=== PATIENT | male | born 1965 | race Caucasian/White ===

== ENCOUNTER 2019-06-11 01:48 | Inpatient (IN) | payer SELFPAY ==
--- NOTE | 2019-06-11 02:02 | HP ---
"CIWA Score Nausea/Vomitin-No Nausea/No Vomiting Muscle Tremors: 1-None Visible, but [place] Anxiety: 3 Agitation: 3 Paroxysmal Sweats: 3 Orientation: 0-Oriented Tacttile Disturbances: 0-None Auditory Disturbances: 0-None Visual Disturbances: 0-None Headache: 0-None Present CIWA-Ar Total Score: 10 - Admission Criteria OASAS Guidelines: Admission for Medically Managed Detox: Requires at least one of the followin. CIWA greater than 12 2. Seizures within the past 24 hours 3. Delirium tremens within the past 24 hours 4. Hallucinations within the past 24 hours 5. Acute intervention needed for co occurring medical disorder 6. Acute intervention needed for co occurring psychiatric disorder 7. Severe withdrawal that cannot be handled at a lower level of care (continued vomiting, continued diarrhea, abnormal vital signs) requiring intravenous medication and/or fluids 8. Patient presents the following: Acute intervention needed for co-occurring med or psych disorder (CHUY: 0.237) Admission Criteria Met: Admission criteria met Admission ROS BHS - HPI Chief Complaint: I need help. Allergies/Adverse Reactions: Allergies Allergy/AdvReac Type Severity Reaction Status Date / Time No Known Allergies Allergy Verified 06/11/19 02:14 History of Present Illness: 53 yo w/ hx alcohol use presents intoxicated w/ withdrawal symptoms requesting detox. Alcohol use began at an early age. States drinks 2 - 5 Th's vodka daily. Last drink earlier. Drinks daily.Currently drinking 8 years. Denies nicotine. No other drugs. PMHx: 4-5x/ urination; Encouraged to f/u upon discharge. MHHx: Insomnia. Denies depression. States living in an inferno and doesn't want to keep living that way. Denies thoughts of harming sself or others. SHx: Domiciled. Employed. Denies legal problems. Search Terms: Kate Nath, 1965 Search Date: 06/11/2019 02:10:13 AM The Drug Utilization Report below displays all of the controlled substance prescriptions, if any, that your patient has filled in the last twelve months. The information displayed on this report is compiled from pharmacy submissions to the Department, and accurately reflects the information as submitted by the pharmacies. This report was requested by: Yolis Del Rio | Reference #: [id number] There are no results for the search terms that you entered. Exam Limitations: Intoxication - Ebola screening Have you traveled outside of the country in the last 21 days: No Have you had contact with anyone from an Ebola affected area: No Have you been sick,other than usual withdrawal symptoms: No Do you have a fever: No - Review of Systems Constitutional: Diaphoresis EENT: reports: Blurred Vision Respiratory: reports: No Symptoms reported Cardiac: reports: No Symptoms Reported GI: reports: No Symptoms Reported : reports: Frequency (4-5 x / night urination) Musculoskeletal: reports: No Symptoms Reported Integumentary: reports: No Symptoms Reported Neuro: reports: No Symptoms reported Endocrine: reports: No Symptoms Reported Hematology: reports: No Symptoms Reported Psychiatric: reports: Orientated x3, Agitated Patient History - PPD History Previous Implant?: No (Will order TB Gold test) Implanted On Prior [facility] Admission?: No PPD to be Administered?: No - Smoking Cessation Smoking history: Never smoked Have you smoked in the past 12 months: No Hx Chewing Tobacco Use: No Initiated information on smoking cessation: No - Substance & Tx. History Hx Alcohol Use: Yes Hx Substance Use: No Substance Use Type: Alcohol Hx Substance Use Treatment: No - Substances abused Alcohol Substance route: Oral Frequency: Daily Admission Physical Exam BHS - Physical General Appearance: Yes: Nourished, Intoxicated (CHUY 0.237), Tremorous (faint tremors in hands), Anxious HEENTM: Yes: EOMI (Slight nystagmus on lateral gaze), Hearing grossly Normal, Normocephalic, Normal Voice, SHASTA, Pharynx Normal Respiratory: Yes: Lungs Clear, Normal Breath Sounds, No Respiratory Distress Neck: Yes: No masses,lesions,Nodules, Supple Breast: Yes: Breast Exam Deferred Cardiology: Yes: Regular Rhythm, S1, S2, Tachycardia (HR: 118) Abdominal: Yes: Non Tender, Soft, Increased Bowel Sounds, Protuberent ( Increased abdominal adiposity) Genitourinary: Yes: Frequency Back: Yes: Normal Inspection Musculoskeletal: Yes: full range of Motion, Gait Steady Extremities: Yes: Normal Capillary Refill, Tremors (faint tremors in hands) 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: 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: 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 NML intact (Nystagmus on lateral gaze) Integumentary: Yes: Normal Color, Warm Lymphatic: Yes: Within Normal Limits - Diagnostic (1) Alcohol dependence with uncomplicated intoxication Current Visit: Yes Status: Acute (2) Nystagmus Current Visit: Yes Status: Acute (3) Tachycardia Current Visit: Yes Status: Acute (4) Nocturia Current Visit: Yes Status: Chronic Comment: 4-5x/night Cleared for Admission S - Detox or Rehab [facility] Level of Care: Medically Managed Detox Regimen/Protocol: Librium Claeared for Rehab Admission: No Breathalyzer - Breathalyzer Breathalyzer: 0.237 Urine Drug Screen - Test Device Lot number: [id number] Expiration date: 03/06/21 - Control Is test valid?: Yes - Results Drug screen NEGATIVE: Yes Inpatient Rehab Admission - Rehab Decision to Admit Inpatient rehab admission?: No"
[2019-06-11] MEDS ORDERED: MENTHOL/PHENOL 1 EACH UD MM PRN (02:37)
[2019-06-11] MEDS ORDERED: chlordiazePOXIDE HCL 25 MG CAPSULE PO PRN (02:37)
[2019-06-11] MEDS ORDERED: ACETAMINOPHEN 325 MG TABLET (FP) PO PRN ×2 (02:37)
[2019-06-11] MEDS ORDERED: IBUPROFEN 400 MG TABLET (FP) PO PRN (02:37)
[2019-06-11] MEDS ORDERED: BISMUTH SUBSALICYLATE 524 MG/30 ML UD PO PRN (02:37)
[2019-06-11] MEDS ORDERED: MAG HYDROX/AL HYDROX/SIMETH 30 ML UNIT-DOSE CUP PO PRN (02:37)
[2019-06-11] MEDS ORDERED: MAGNESIUM CITRATE 300 ML BOTTLE PO PRN (02:37)
[2019-06-11] MEDS ORDERED: METHOCARBAMOL 500 MG TABLET PO PRN (02:37)
[2019-06-11] MEDS ORDERED: MAGNESIUM HYDROX 2400MG/30ML ORAL SUSPENSION 30 ML CUP PO PRN (02:37)
[2019-06-11] MEDS ORDERED: cloNIDine HCL 0.1 MG TABLET PO ONE (03:45)
[2019-06-11] MEDS: chlordiazePOXIDE HCL 25 MG CAPSULE PO SCH ×6 (06:05→22:12)
--- NOTE | 2019-06-11 09:46 | PN ---
S CIWA - CIWA Score Nausea/Vomitin Muscle Tremors: 2 Anxiety: 2 Agitation: 2 Paroxysmal Sweats: No Perspiration Orientation: 0-Oriented Tacttile Disturbances: 1-Very Mild Itch/Numbness Auditory Disturbances: 0-None Visual Disturbances: 0-None Headache: 2-Mild CIWA-Ar Total Score: 11 BHS Progress Note (SOAP) Subjective: alert,irritable,anxious interrupted sleep,tremor Objective: 06/11/19 09:44 Vital Signs Temperature 98.1 F 06/11/19 09:14 Pulse Rate 108 H 06/11/19 09:14 Respiratory Rate 06/11/19 09:14 Blood Pressure 98/54 L 06/11/19 09:14 O2 Sat by Pulse Oximetry (%) 06/11/19 09:45 labs pending Assessment: 06/11/19 09:45 withdrawal symptom Plan: continue detox,librium regimen
[2019-06-11] MEDS ORDERED: chlordiazePOXIDE HCL 10 MG CAPSULE PO PRN (09:47)
--- NOTE | 2019-06-11 11:18 | CONSULT ---
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 Refer to addiction counselor's summary for furher information Medical History: Unremarkable. Psychiatric History: Denies history of previous psychiatric treatment Physical/Sexual Abuse/Trauma History: Denies history emotional, physical or sexual abuse as well as DV relationship. No service Additional Comment: Reports history of one previous arrest on charges of driving without a license Mental Status Exam - Mental Status Exam Alert and Oriented to: Time, Place, Person Cognitive Function: Fair Patient Appearance: Disheveled Mood: Depressed Affect: Appropriate Patient Behavior: Cooperative Speech Pattern: Clear Voice Loudness: Normal Thought Process: Intact, Goal Oriented Hallucinations: Denies Suicidal Ideation: Denies Homicidal Ideation: Denies Insight/Judgement: Poor Appetite: Good Muscle strength/Tone: Normal Gait/Station: Normal Psychiatric Findings - Problem List ([place] 1, 2,3) (1) Alcohol-induced mood disorder Current Visit: Yes Status: Acute (2) Alcohol-induced sleep disorder Current Visit: Yes Status: Acute (3) Alcohol dependence with uncomplicated intoxication Current Visit: Yes Status: Acute - Initial Treatment Plan Initial Treatment Plan: 1) Start Belsomra 10 mg po HS prn for insomnia. 2) Continue inpatient detoxification
[2019-06-11] MEDS: PRENATAL VITAMINS W/ FOLIC ACID TABLET (FP) PO SCH (11:32)
[2019-06-11 12:14] LABS: HEMATOCRIT 43.1 % (35.4-49); HEMOGLOBIN 14.9 GM/dL (11.7-16.9); MCH 31.7 pg (25.7-33.7); MCHC 34.6 g/dl (32.0-35.9); MEAN CELL VOLUME 91.5 fl (80-96); MEAN PLT VOLUME 10.1 fl (7.5-11.1); PLATELET COUNT 76 K/MM3 (134-434); RBC 4.72 M/mm3 (4.00-5.60); WHITE BLOOD COUNT 2.9 K/mm3 (4.0-10.0)
[2019-06-11 12:31] LABS: ALBUMIN 3.5 g/dl (3.4-5.0); BILIRUBIN,TOTAL 0.6 mg/dL (0.2-1); BLOOD UREA NITROGEN 13.4 mg/dL (7-18); CALCIUM 8.3 mg/dL (8.5-10.1); CREATININE 1.1 mg/dL (0.55-1.3); POTASSIUM 3.5 mmol/L (3.5-5.1); TOT PROT 6.7 g/dl (6.4-8.2)
[2019-06-11] MEDS: SUVOREXANT 10 MG TABLET PO PRN (22:14)
[2019-06-11] MEDS: THIAMINE HCL 100 MG TABLET (FP) PO SCH (22:20)
[2019-06-11] MEDS ORDERED: MELATONIN 5 MG TABLETS PO PRN (23:00)
[2019-06-12] MEDS: chlordiazePOXIDE HCL 25 MG CAPSULE PO SCH ×4 (07:08→22:09)
--- NOTE | 2019-06-12 10:03 | PN ---
S CIWA - CIWA Score Nausea/Vomitin Muscle Tremors: 2 Anxiety: 2 Agitation: 2 Paroxysmal Sweats: 1-Minimal [place] Moist Orientation: 0-Oriented Tacttile Disturbances: 1-Very Mild Itch/Numbness Auditory Disturbances: 0-None Visual Disturbances: 0-None Headache: 1-Very Mild CIWA-Ar Total Score: 11 S Progress Note (SOAP) Subjective: alert,irritable,anxious,interrupted sleep,pain in the body Objective: 06/12/19 10:01 Vital Signs Temperature 98.3 F 06/12/19 09:18 Pulse Rate 115 H 06/12/19 09:18 Respiratory Rate 18 06/12/19 09:18 Blood Pressure 130/93 06/12/19 09:18 O2 Sat by Pulse Oximetry (%) Laboratory Last Values WBC 2.9 K/mm3 (4.0-10.0) L 06/11/19 09:00 RBC 4.72 M/mm3 (4.00-5.60) 06/11/19 09:00 Hgb 14.9 GM/dL (11.7-16.9) 06/11/19 09:00 Hct 43.1 % (35.4-49) 06/11/19 09:00 MCV 91.5 fl (80-96) 06/11/19 09:00 MCH 31.7 pg (25.7-33.7) 06/11/19 09:00 MCHC 34.6 g/dl (32.0-35.9) 06/11/19 09:00 RDW 14.0 % (11.9-15.9) 06/11/19 09:00 Plt Count 76 K/MM3 (134-434) L 06/11/19 09:00 MPV 10.1 fl (7.5-11.1) 06/11/19 09:00 Sodium 143 mmol/L (136-145) 06/11/19 09:00 Potassium 3.5 mmol/L (3.5-5.1) 06/11/19 09:00 Chloride 101 mmol/L (98-107) 06/11/19 09:00 Carbon Dioxide 26 mmol/L (21-32) 06/11/19 09:00 Anion Gap 16 MMOL/L (8-16) 06/11/19 09:00 BUN 13.4 mg/dL (7-18) 06/11/19 09:00 Creatinine 1.1 mg/dL (0.55-1.3) 06/11/19 09:00 Est GFR (CKD-EPI)AfAm 89.61 06/11/19 09:00 Est GFR (CKD-EPI)NonAf 77.32 06/11/19 09:00 Random Glucose 164 mg/dL (74-106) H 06/11/19 09:00 Calcium 8.3 mg/dL (8.5-10.1) L 06/11/19 09:00 Total Bilirubin 0.6 mg/dL (0.2-1) 06/11/19 09:00 AST 57 U/L (15-37) H 06/11/19 09:00 ALT 59 U/L (13-61) 06/11/19 09:00 Alkaline Phosphatase 77 U/L (45-117) 06/11/19 09:00 Total Protein 6.7 g/dl (6.4-8.2) 06/11/19 09:00 Albumin 3.5 g/dl (3.4-5.0) 06/11/19 09:00 Assessment: 06/12/19 10:03 withdrawal symptom Plan: continue detox librium regimen
[2019-06-12] MEDS: PRENATAL VITAMINS W/ FOLIC ACID TABLET (FP) PO SCH (10:21)
[2019-06-12] MEDS: SUVOREXANT 10 MG TABLET PO PRN (22:09)
[2019-06-12] MEDS: THIAMINE HCL 100 MG TABLET (FP) PO SCH (22:09)
[2019-06-13] MEDS ORDERED: chlordiazePOXIDE HCL 10 MG CAPSULE PO PRN
[2019-06-13] MEDS ORDERED: chlordiazePOXIDE 5 MG CAPSULE PO SCH (05:00)
[2019-06-13] MEDS: chlordiazePOXIDE HCL 10 MG CAPSULE PO SCH ×4 (06:07→22:20)
--- NOTE | 2019-06-13 10:37 | PN ---
S CIWA - CIWA Score Nausea/Vomitin-No Nausea/No Vomiting Muscle Tremors: 2 Anxiety: 3 Agitation: 0-Normal Activity Paroxysmal Sweats: 3 Orientation: 0-Oriented Tacttile Disturbances: 0-None Auditory Disturbances: 0-None Visual Disturbances: 0-None Headache: 2-Mild CIWA-Ar Total Score: 10 S Progress Note (SOAP) Subjective: c/o sweats, anxiety, headache, and mild shakes. Objective: 06/13/19 10:36 Vital Signs 06/13/19 06/13/19 06:00 08:59 Temperature 98.4 F 98.4 F Pulse Rate 89 119 H Respiratory 18 18 Rate Blood Pressure 134/82 143/98 Lab Results WBC 2.9 K/mm3 (4.0-10.0) L 06/11/19 09:00 RBC 4.72 M/mm3 (4.00-5.60) 06/11/19 09:00 Hgb 14.9 GM/dL (11.7-16.9) 06/11/19 09:00 Hct 43.1 % (35.4-49) 06/11/19 09:00 MCV 91.5 fl (80-96) 06/11/19 09:00 MCHC 34.6 g/dl (32.0-35.9) 06/11/19 09:00 RDW 14.0 % (11.9-15.9) 06/11/19 09:00 Plt Count 76 K/MM3 (134-434) L 06/11/19 09:00 Sodium 143 mmol/L (136-145) 06/11/19 09:00 Potassium 3.5 mmol/L (3.5-5.1) 06/11/19 09:00 Chloride 101 mmol/L (98-107) 06/11/19 09:00 Carbon Dioxide 26 mmol/L (21-32) 06/11/19 09:00 Anion Gap 16 MMOL/L (8-16) 06/11/19 09:00 BUN 13.4 mg/dL (7-18) 06/11/19 09:00 Creatinine 1.1 mg/dL (0.55-1.3) 06/11/19 09:00 Random Glucose 164 mg/dL (74-106) H 06/11/19 09:00 Calcium 8.3 mg/dL (8.5-10.1) L 06/11/19 09:00 Labs reviewed. Assessment: 06/13/19 10:36 AOX3, in no acute distress. Full ROM, ambulating in the unit. Withdrawal symptoms. Plan: continue detox
[2019-06-13] MEDS: PRENATAL VITAMINS W/ FOLIC ACID TABLET (FP) PO SCH (10:52)
[2019-06-13] MEDS: SUVOREXANT 10 MG TABLET PO PRN (22:20)
[2019-06-13] MEDS: THIAMINE HCL 100 MG TABLET (FP) PO SCH (22:20)
[2019-06-14] MEDS ORDERED: chlordiazePOXIDE HCL 10 MG CAPSULE PO PRN
[2019-06-14] MEDS ORDERED: chlordiazePOXIDE HCL 10 MG CAPSULE PO SCH (05:00)
[2019-06-14] MEDS: chlordiazePOXIDE HCL 10 MG CAPSULE PO SCH ×2 (06:04→17:34)
[2019-06-14] MEDS: PRENATAL VITAMINS W/ FOLIC ACID TABLET (FP) PO SCH (10:57)
[2019-06-14] MEDS ORDERED: cloNIDine HCL 0.1 MG TABLET PO PRN (13:32)
--- NOTE | 2019-06-14 13:35 | PN ---
[facility] CIWA - CIWA Score Nausea/Vomitin-No Nausea/No Vomiting Muscle Tremors: None Anxiety: 3 Agitation: 2 Paroxysmal Sweats: 2 Orientation: 0-Oriented Tacttile Disturbances: 0-None Auditory Disturbances: 0-None Visual Disturbances: 0-None Headache: 0-None Present CIWA-Ar Total Score: 7 BHS Progress Note (SOAP) Subjective: Interrupted sleep Objective: 06/14/19 13:30 Last Vital Signs Temp Pulse Resp BP Pulse Ox 98.4 F 98 H 18 151/98 06/14/19 13:01 06/14/19 13:01 06/14/19 13:01 06/14/19 13:01 Elevated b/p noted (denies htn, not on med) Laboratory Tests 06/11/19 06/11/19 06/11/19 09:00 09:00 09:00 WBC 2.9 L RBC 4.72 Hgb 14.9 Hct 43.1 MCV 91.5 MCH 31.7 MCHC 34.6 RDW 14.0 Plt Count 76 L MPV 10.1 Sodium 143 Potassium 3.5 Chloride 101 Carbon Dioxide 26 Anion Gap 16 BUN 13.4 Creatinine 1.1 Est GFR (CKD-EPI)AfAm 89.61 Est GFR (CKD-EPI)NonAf 77.32 Random Glucose 164 H Calcium 8.3 L Total Bilirubin 0.6 AST 57 H ALT 59 Alkaline Phosphatase 77 Total Protein 6.7 Albumin 3.5 TB (QFT) Incubation TB Test (QFT) Nil 0.04 TB Test (QFT) Mitogen >10.00 TB Test (QFT) Antigen 0.04 TB Test (QFT) Negative TB Positive Criteria Labs reviewed: serum glucose 164 Assessment: 06/14/19 13:35 Withdrawal sxs Noted with elevated b/p and hyperglycemia Plan: Continue detox Encouraged PO water hydration Patient for discharge tomorrow. Hold discharge until lab result (fasting glucose , A1c) available Elevated b/p: denies htn, start clonidine prn if b/p > 140/90, follow up with PCP for management Hyperglycemia: denies dm, could be r/t withdrawal, check fingerstick x 1, repeat fasting glucose, send HbA1c
[2019-06-14] MEDS: THIAMINE HCL 100 MG TABLET (FP) PO SCH (22:03)
[2019-06-14] MEDS: SUVOREXANT 10 MG TABLET PO PRN (22:05)
[2019-06-15] MEDS ORDERED: chlordiazePOXIDE HCL 10 MG CAPSULE PO ONE ×2 (05:00)
--- NOTE | 2019-06-15 08:36 | DS ---
[facility] Detox Discharge Summary Admission Date: 06/11/19 Discharge Date: 06/15/19 - History Present History: Alcohol Dependence - Physical Exam Results Vital Signs: Vital Signs Temperature 97.7 F 06/15/19 06:45 Pulse Rate 119 H 06/15/19 06:45 Respiratory Rate 20 06/15/19 06:45 Blood Pressure 138/98 06/15/19 06:45 O2 Sat by Pulse Oximetry (%) Pertinent Admission Physical Exam Findings: pt arrived in withdrawals Laboratory Tests 06/11/19 06/11/19 06/11/19 09:00 09:00 09:00 WBC 2.9 L RBC 4.72 Hgb 14.9 Hct 43.1 MCV 91.5 MCH 31.7 MCHC 34.6 RDW 14.0 Plt Count 76 L MPV 10.1 Sodium 143 Potassium 3.5 Chloride 101 Carbon Dioxide 26 Anion Gap 16 BUN 13.4 Creatinine 1.1 Est GFR (CKD-EPI)AfAm 89.61 Est GFR (CKD-EPI)NonAf 77.32 POC Glucometer Random Glucose 164 H Calcium 8.3 L Total Bilirubin 0.6 AST 57 H ALT 59 Alkaline Phosphatase 77 Total Protein 6.7 Albumin 3.5 TB (QFT) Incubation TB Test (QFT) Nil 0.04 TB Test (QFT) Mitogen >10.00 TB Test (QFT) Antigen 0.04 TB Test (QFT) Negative TB Positive Criteria 06/14/19 17:26 WBC RBC Hgb Hct MCV MCH MCHC RDW Plt Count MPV Sodium Potassium Chloride Carbon Dioxide Anion Gap BUN Creatinine Est GFR (CKD-EPI)AfAm Est GFR (CKD-EPI)NonAf POC Glucometer 144 Random Glucose Calcium Total Bilirubin AST ALT Alkaline Phosphatase Total Protein Albumin TB (QFT) Incubation TB Test (QFT) Nil TB Test (QFT) Mitogen TB Test (QFT) Antigen TB Test (QFT) TB Positive Criteria today pt is aaox3 ambulating no s/s of withdrawals - Treatment Hospital Course: Detox Protocol Followed, Detoxed Safely, Responded well, Discharged Condition Good, Rehab Referral Accepted Patient has Accepted a Rehab Referral to: pt declined rehab; referral provided - Diagnosis (1) Alcohol dependence with uncomplicated intoxication Current Visit: Yes Status: Chronic (2) Alcohol-induced mood disorder Current Visit: Yes Status: Acute (3) Alcohol-induced sleep disorder Current Visit: Yes Status: Acute (4) Tachycardia Current Visit: Yes Status: Chronic - AMA Did Patient Leave Against Medical Advice: No
[2019-06-15 09:22] VITALS: BP 133/97; PULSE 110; TEMP 98.2
== END 2019-06-15 10:10 | disposition home or self-care (01) | DRG 775 ==
LOC: YASAS 01:48 → Y6N 02:26 → UNDODISIN 03:00 → Y6N 03:03
PROVIDERS: ADMIT Surgery; ATTEND Surgery
PROC: HZ2ZZZZ Detoxification Services for Substance Abuse Treatment (ICD-10-PCS; principal; 2019-06-11)
DX: F10.230 Alcohol dependence with withdrawal, uncomplicated (principal); F10.24 Alcohol dependence with alcohol-induced mood disorder; F10.282 Alcohol dependence with alcohol-induced sleep disorder; R35.1 Nocturia; R03.0 Elevated blood-pressure reading, without diagnosis of hypertension; R00.0 Tachycardia, unspecified; R73.9 Hyperglycemia, unspecified; H55.00 Unspecified nystagmus
CPT/HCPCS: 36415; 80053; 82947; 82962; 83036; 85027; 86480; J0735

== ENCOUNTER 2019-08-14 11:12 | Inpatient (IN) | payer SELFPAY ==
[2019-08-14 12:20] VITALS: BMI 32.1
--- NOTE | 2019-08-14 15:57 | HP ---
CIWA Score Nausea/Vomitin-No Nausea/No Vomiting Muscle Tremors: 1-None Visible, but [place] Anxiety: 1-Mildly Anxious Agitation: 0-Normal Activity Paroxysmal Sweats: No Perspiration Orientation: 0-Oriented Tacttile Disturbances: 0-None Auditory Disturbances: 0-None Visual Disturbances: 0-None Headache: 0-None Present CIWA-Ar Total Score: 2 - Admission Criteria OASAS Guidelines: Admission for Medically Managed Detox: Requires at least one of the followin. CIWA greater than 12 2. Seizures within the past 24 hours 3. Delirium tremens within the past 24 hours 4. Hallucinations within the past 24 hours 5. Acute intervention needed for co occurring medical disorder 6. Acute intervention needed for co occurring psychiatric disorder 7. Severe withdrawal that cannot be handled at a lower level of care (continued vomiting, continued diarrhea, abnormal vital signs) requiring intravenous medication and/or fluids 8. Admitting History and Physical - Admission Chief Complaint: alcohol abuse History Source: Patient Limitations to Obtaining History: No Limitations - Past Medical History Psych: Yes: Addictions, Other (insomnia) - Past Surgical History Past Surgical History: Yes: None - Smoking History Smoking history: Never smoked Have you smoked in the past 12 months: No - Alcohol/Substance Use Hx Alcohol Use: Yes Admission ROS [facility] - [facility] Allergies/Adverse Reactions: Allergies Allergy/AdvReac Type Severity Reaction Status Date / Time No Known Allergies Allergy Verified 08/14/19 12:15 History of Present Illness: 53 y.o. M PMH insomnia,alcohol abuse presenting for rehab for alcohol. Recently completed detox here 1 month ago but thinks he needs rehab this time around. EtOH: Daily use. Vodka, drinks 1 bottle daily cant quantify amount of how big the bottle is. Last drink last night 1/5th bottle. Has been drinking x 6 years. Longest sober period 30 days. 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 Lives in apartment, alone. All: NKDA/ NKFA Meds: melatonin 25mg Exam Limitations: No Limitations - Ebola screening Have you traveled outside of the country in the last 21 days: No (N) Have you had contact with anyone from an Ebola affected area: No Do you have a fever: No - Review of Systems Constitutional: No Symptoms Reported EENT: reports: No Symptoms Reported Respiratory: reports: No Symptoms reported Cardiac: reports: No Symptoms Reported GI: reports: No Symptoms Reported Musculoskeletal: reports: No Symptoms Reported Integumentary: reports: No Symptoms Reported Neuro: reports: No Symptoms reported Endocrine: reports: No Symptoms Reported Hematology: reports: No Symptoms Reported Psychiatric: reports: No Sypmtoms Reported, Mood/Affect Appropiate, Orientated x3 Patient History - Patient Medical History Hx Anemia: No Hx Asthma: No Hx Chronic Obstructive Pulmonary Disease (COPD): No Hx Cancer: No Hx Cardiac Disorders: No Hx Congestive Heart Failure: No Hx Hypertension: No Hx Hypercholesterolemia: No Hx Pacemaker: No HX Cerebrovascular Accident: No Hx Seizures: No Hx Dementia: No Hx Diabetes: No Hx Gastrointestinal Disorders: No Hx Liver Disease: No Hx Genitourinary Disorders: No Hx Sexually Transmitted Disorders: No Hx Renal Disease (ESRD): No Hx Thyroid Disease: No Hx Human Immunodeficiency Virus (HIV): No Hx Hepatitis C: No Hx Depression: No Hx Suicide Attempt: No Hx Bipolar Disorder: No Hx Schizophrenia: No - Patient Surgical History Past Surgical History: No - Smoking Cessation Smoking history: Never smoked Have you smoked in the past 12 months: No Hx Chewing Tobacco Use: No - Substance & Tx. History Hx Alcohol Use: Yes Substance Use Type: Alcohol - Substances abused Alcohol Substance route: Oral Frequency: Daily Amount used: 1bottle of vodka Age of first use: 47 Date of last use: 08/13/19 Admission Physical Exam [facility] - Vital Signs Vital Signs: Vital Signs - 24 hr 08/14/19 12:16 Temperature 98.6 F Pulse Rate 123 H Respiratory 18 Rate Blood Pressure 145/104 H - Physical General Appearance: Yes: Within Normal Limits, No Apparent Distress HEENTM: Yes: Within Normal Limits, Normal ENT Inspection, Normocephalic Respiratory: Yes: Within Normal Limits, Lungs Clear, Normal Breath Sounds, No Respiratory Distress Neck: Yes: Within Normal Limits Cardiology: Yes: S1, S2, Tachycardia Abdominal: Yes: Normal Bowel Sounds, Non Tender, Soft Musculoskeletal: Yes: Within Normal Limits, full range of Motion Extremities: Yes: Normal Inspection, Normal Range of Motion, Non-Tender 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
--- NOTE | 2019-08-14 16:18 | PN ---
Teaching Attending Note Name of Resident: Candelaria Beard ATTENDING PHYSICIAN STATEMENT I saw and evaluated the patient. I reviewed the resident's note and discussed the case with the resident. I agree with the resident's findings and plan as documented. SUBJECTIVE: 53 y.o. male pt here reporting etoh use daily x 10 days , w/ severe blackouts lasting days, states awakened and did not realize days passed by , niced several empty bottles of liquor by bedside, did not recall drinking , missed 1 week of work and was advised to seek tx . Previous job loss /2 ETOH use Jun 2019 . 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 . EtOH: Vodka, drinks 1 large bottle daily x 6 years, longest sobriety 30 days . PMH insomnia OBJECTIVE: wnwd , anxious , tachycardia, mild UE tremors. Vital Signs - 24 hr 08/14/19 12:16 Temperature 98.6 F Pulse Rate 123 H Respiratory 18 Rate Blood Pressure 145/104 H ASSESSMENT AND PLAN: Alcohol use disorder- Librium detox.
[2019-08-14] MEDS ORDERED: IBUPROFEN 400 MG TABLET (FP) PO PRN (16:27)
[2019-08-14] MEDS ORDERED: ACETAMINOPHEN 325 MG TABLET (FP) PO PRN ×2 (16:27)
[2019-08-14] MEDS ORDERED: MAGNESIUM CITRATE 300 ML BOTTLE PO PRN (16:27)
[2019-08-14] MEDS ORDERED: MAGNESIUM HYDROX 2400MG/30ML ORAL SUSPENSION 30 ML CUP PO PRN (16:27)
[2019-08-14] MEDS ORDERED: BISMUTH SUBSALICYLATE 524 MG/30 ML UD PO PRN (16:27)
[2019-08-14] MEDS ORDERED: hydrOXYzine PAMOATE 25 MG CAPSULE (FP) PO PRN (16:27)
[2019-08-14] MEDS ORDERED: MAG HYDROX/AL HYDROX/SIMETH 30 ML UNIT-DOSE CUP PO PRN (16:27)
[2019-08-14] MEDS ORDERED: MENTHOL/PHENOL 1 EACH UD MM PRN (16:27)
[2019-08-14] MEDS ORDERED: chlordiazePOXIDE HCL 25 MG CAPSULE PO PRN (16:27)
[2019-08-14] MEDS ORDERED: METOPROLOL TARTRATE 25 MG TABLET (FP) PO ONE (17:30)
[2019-08-14] MEDS: chlordiazePOXIDE HCL 25 MG CAPSULE PO SCH ×2 (17:46→22:04)
[2019-08-14] MEDS: THIAMINE HCL 100 MG TABLET (FP) PO SCH (22:04)
[2019-08-14] MEDS: METHOCARBAMOL 500 MG TABLET PO PRN (22:07)
[2019-08-14] MEDS: MELATONIN 5 MG TABLETS PO PRN (22:07)
[2019-08-15] MEDS: chlordiazePOXIDE HCL 25 MG CAPSULE PO SCH ×4 (05:37→22:11)
[2019-08-15] MEDS: PRENATAL VITAMINS W/ FOLIC ACID TABLET (FP) PO SCH (10:32)
--- NOTE | 2019-08-15 11:27 | PN ---
S CIWA - CIWA Score Nausea/Vomitin-No Nausea/No Vomiting Muscle Tremors: 3 Anxiety: 2 Agitation: 3 Paroxysmal Sweats: 2 Orientation: 0-Oriented Tacttile Disturbances: 0-None Auditory Disturbances: 0-None Visual Disturbances: 0-None Headache: 0-None Present CIWA-Ar Total Score: 10 S Progress Note (SOAP) Subjective: sweats shakes interrupted sleep Objective: 08/15/19 11:26 Vital Signs Temperature 98.4 F 08/15/19 09:28 Pulse Rate 95 H 08/15/19 09:28 Respiratory Rate 16 08/15/19 09:28 Blood Pressure 145/88 08/15/19 09:28 O2 Sat by Pulse Oximetry (%) labs pending aaox3 ambulating no acute distress Assessment: 08/15/19 11:27 withdrawals Plan: continue detox increase fluids
[2019-08-15] MEDS: MELATONIN 5 MG TABLETS PO PRN (22:11)
[2019-08-15] MEDS: THIAMINE HCL 100 MG TABLET (FP) PO SCH (22:11)
[2019-08-15] MEDS: METHOCARBAMOL 500 MG TABLET PO PRN (22:12)
[2019-08-16] MEDS: chlordiazePOXIDE HCL 25 MG CAPSULE PO SCH ×4 (06:08→22:27)
[2019-08-16] MEDS: PRENATAL VITAMINS W/ FOLIC ACID TABLET (FP) PO SCH (10:31)
[2019-08-16] MEDS ORDERED: cloNIDine HCL 0.1 MG TABLET PO PRN (12:02)
--- NOTE | 2019-08-16 12:03 | PN ---
S CIWA - CIWA Score Nausea/Vomitin-No Nausea/No Vomiting Muscle Tremors: 2 Anxiety: 3 Agitation: 2 Paroxysmal Sweats: 2 Orientation: 0-Oriented Tacttile Disturbances: 0-None Auditory Disturbances: 0-None Visual Disturbances: 0-None Headache: 0-None Present CIWA-Ar Total Score: 9 BHS Progress Note (SOAP) Subjective: Feels ok Objective: 08/16/19 11:59 Last Vital Signs Temp Pulse Resp BP Pulse Ox 97.9 F 100 H 18 153/83 08/16/19 09:31 08/16/19 09:31 08/16/19 09:31 08/16/19 09:31 Elevated b/p: denies htn, not on med Labs from 06/11/19 reviewed: serum gluc 144, POC glucose 164, A1c 5.5%, plt 76 Assessment: 08/16/19 12:09 Withdrawal sxs Noted with elevated b/p, hyperglycemia and thrombocytopenia Plan: Continue detox Encouraged PO water intake Elevated b/p: denies HTN, start clonidine prn Hyperglycemia: could be r/t withdrawal, repeat fasting glucose Thrombocytopenia: most likely r/t chronic alcoholism, monitor for bruising/ bleeding, follow up with PCP for management
[2019-08-16] MEDS: THIAMINE HCL 100 MG TABLET (FP) PO SCH (22:27)
[2019-08-16] MEDS: METHOCARBAMOL 500 MG TABLET PO PRN (22:28)
[2019-08-17] MEDS ORDERED: chlordiazePOXIDE HCL 10 MG CAPSULE PO PRN
[2019-08-17] MEDS: chlordiazePOXIDE HCL 10 MG CAPSULE PO SCH ×4 (06:08→22:19)
[2019-08-17] MEDS: PRENATAL VITAMINS W/ FOLIC ACID TABLET (FP) PO SCH (10:36)
--- NOTE | 2019-08-17 11:40 | PN ---
S CIWA - CIWA Score Nausea/Vomitin-Mild Nausea/No Vomiting Muscle Tremors: 1-None Visible, but [place] Anxiety: 1-Mildly Anxious Agitation: 1-Slight > Activity Paroxysmal Sweats: No Perspiration Orientation: 0-Oriented Tacttile Disturbances: 1-Very Mild Itch/Numbness Auditory Disturbances: 0-None Visual Disturbances: 0-None Headache: 2-Mild CIWA-Ar Total Score: 7 BHS Progress Note (SOAP) Subjective: alert,irritable,anxious,interrupted sleep,pain in the body Objective: 08/17/19 11:26 Vital Signs Temperature 97.6 F 08/17/19 09:39 Pulse Rate 98 H 08/17/19 09:39 Respiratory Rate 18 08/17/19 09:39 Blood Pressure 115/79 08/17/19 09:39 O2 Sat by Pulse Oximetry (%) 08/17/19 11:27 Laboratory Last Values Fasting Glucose 124 mg/dL (74-106) H 08/17/19 07:50 Assessment: 08/17/19 11:40 withdrawal symptom Plan: continue detox librium regimen,cbc cmp,rpr ordered
[2019-08-17] MEDS: THIAMINE HCL 100 MG TABLET (FP) PO SCH (22:18)
[2019-08-17] MEDS: MELATONIN 5 MG TABLETS PO PRN (22:19)
[2019-08-17] MEDS: METHOCARBAMOL 500 MG TABLET PO PRN (22:19)
[2019-08-18] MEDS: chlordiazePOXIDE HCL 10 MG CAPSULE PO SCH ×2 (05:41→17:46)
[2019-08-18 09:38] LABS: HEMATOCRIT 39.4 % (35.4-49); HEMOGLOBIN 13.5 GM/dL (11.7-16.9); MCH 31.7 pg (25.7-33.7); MCHC 34.4 g/dl (32.0-35.9); MEAN CELL VOLUME 92.3 fl (80-96); MEAN PLT VOLUME 11.5 fl (7.5-11.1); PLATELET COUNT 53 K/MM3 (134-434); RBC 4.27 M/mm3 (4.00-5.60); RDW 14.2 % (11.9-15.9); WHITE BLOOD COUNT 2.9 K/mm3 (4.0-10.0)
[2019-08-18 10:00] LABS: ALBUMIN 3.1 g/dl (3.4-5.0); BILIRUBIN,TOTAL 0.3 mg/dL (0.2-1); BLOOD UREA NITROGEN 16.6 mg/dL (7-18); CALCIUM 9.3 mg/dL (8.5-10.1); CREATININE 0.8 mg/dL (0.55-1.3); POTASSIUM 3.8 mmol/L (3.5-5.1); TOT PROT 5.9 g/dl (6.4-8.2)
[2019-08-18] MEDS: PRENATAL VITAMINS W/ FOLIC ACID TABLET (FP) PO SCH (10:34)
--- NOTE | 2019-08-18 12:01 | PN ---
[facility] CIWA - CIWA Score Nausea/Vomitin-No Nausea/No Vomiting Muscle Tremors: None Anxiety: 1-Mildly Anxious Agitation: 1-Slight > Activity Paroxysmal Sweats: No Perspiration Orientation: 0-Oriented Tacttile Disturbances: 0-None Auditory Disturbances: 0-None Visual Disturbances: 0-None Headache: 0-None Present CIWA-Ar Total Score: 2 BHS Progress Note (SOAP) Subjective: tired Objective: 08/18/19 12:01 Vital Signs Temperature 98.2 F 08/18/19 09:27 Pulse Rate 78 08/18/19 09:27 Respiratory Rate 18 08/18/19 09:27 Blood Pressure 126/83 08/18/19 09:27 O2 Sat by Pulse Oximetry (%) aaox3 ambulating no acute distress Assessment: 08/18/19 12:01 mild withdrawals Plan: continue detox d/c in am
[2019-08-18] MEDS: THIAMINE HCL 100 MG TABLET (FP) PO SCH (22:14)
[2019-08-18] MEDS: METHOCARBAMOL 500 MG TABLET PO PRN (22:15)
[2019-08-18] MEDS: MELATONIN 5 MG TABLETS PO PRN (22:15)
[2019-08-19] MEDS ORDERED: chlordiazePOXIDE HCL 10 MG CAPSULE PO ONE (05:00)
--- NOTE | 2019-08-19 08:59 | DS ---
[facility] Detox Discharge Summary Admission Date: 08/14/19 Discharge Date: 08/19/19 - History Present History: Alcohol Dependence - Physical Exam Results Vital Signs: Vital Signs Temperature 97.9 F 08/19/19 07:16 Pulse Rate 73 08/19/19 07:16 Respiratory Rate 18 08/19/19 07:16 Blood Pressure 140/79 08/19/19 07:16 O2 Sat by Pulse Oximetry (%) Pertinent Admission Physical Exam Findings: pt arrived in withdrawals Vital Signs Temperature 97.9 F 08/19/19 07:16 Pulse Rate 73 08/19/19 07:16 Respiratory Rate 18 08/19/19 07:16 Blood Pressure 140/79 08/19/19 07:16 O2 Sat by Pulse Oximetry (%) Laboratory Tests 08/17/19 08/18/19 08/18/19 07:50 07:20 07:20 WBC 2.9 L RBC 4.27 Hgb 13.5 Hct 39.4 MCV 92.3 MCH 31.7 MCHC 34.4 RDW 14.2 Plt Count 53 L D MPV 11.5 H D Sodium 138 Potassium 3.8 Chloride 105 Carbon Dioxide 26 Anion Gap 7 L BUN 16.6 Creatinine 0.8 Est GFR (CKD-EPI)AfAm 119.88 Est GFR (CKD-EPI)NonAf 103.43 Random Glucose 124 H Fasting Glucose 124 H Calcium 9.3 Total Bilirubin 0.3 AST 40 H ALT 71 H Alkaline Phosphatase 127 H Total Protein 5.9 L Albumin 3.1 L RPR Titer 08/18/19 07:20 WBC RBC Hgb Hct MCV MCH MCHC RDW Plt Count MPV Sodium Potassium Chloride Carbon Dioxide Anion Gap BUN Creatinine Est GFR (CKD-EPI)AfAm Est GFR (CKD-EPI)NonAf Random Glucose Fasting Glucose Calcium Total Bilirubin AST ALT Alkaline Phosphatase Total Protein Albumin RPR Titer Nonreactive today pt is aaox3 ambulating no acute distress no s/s withdrawals - Treatment Hospital Course: Detox Protocol Followed, Detoxed Safely, Responded well, Discharged Condition Good, Rehab Referral Accepted Patient has Accepted a Rehab Referral to: pt referred to [facility] - Medication Discharge Medications: Ambulatory Orders Melatonin 5 mg PO HS 08/14/19 - Diagnosis (1) Alcohol abuse Current Visit: Yes Status: Chronic (2) Alcohol-induced mood disorder Current Visit: No Status: Acute (3) Alcohol-induced sleep disorder Current Visit: No Status: Acute (4) Alcohol dependence with uncomplicated intoxication Current Visit: Yes Status: Chronic (5) Tachycardia Current Visit: No Status: Chronic - AMA Did Patient Leave Against Medical Advice: No
[2019-08-19 09:26] VITALS: BP 130/79; PULSE 74; TEMP 98.8
[2019-08-19] MEDS: PRENATAL VITAMINS W/ FOLIC ACID TABLET (FP) PO SCH (09:30)
== END 2019-08-19 11:20 | disposition home or self-care (01) | DRG 775 ==
LOC: YASAS 11:12 → Y6N 17:03
PROVIDERS: ADMIT Allergy & Immunology; ATTEND Allergy & Immunology
PROC: HZ2ZZZZ Detoxification Services for Substance Abuse Treatment (ICD-10-PCS; principal; 2019-08-14)
DX: F10.230 Alcohol dependence with withdrawal, uncomplicated (principal); F10.220 Alcohol dependence with intoxication, uncomplicated; F10.24 Alcohol dependence with alcohol-induced mood disorder; F10.282 Alcohol dependence with alcohol-induced sleep disorder; R00.0 Tachycardia, unspecified; R03.0 Elevated blood-pressure reading, without diagnosis of hypertension; R73.9 Hyperglycemia, unspecified; D69.6 Thrombocytopenia, unspecified
CPT/HCPCS: 36415; 80053; 82947; 85027; 86593; J0735